=== PATIENT | male | born 1975 | race Hispanic/Latino ===

== ENCOUNTER 2022-04-22 06:41 | Day surgery (SDC) | payer OTHER ==
[2022-04-20 15:37] LABS: BASOPHILS % (AUTO) 0.4 % (0.0-5.0); EOSINOPHILS % (AUTO) 1.2 % (0.0-8.0); LYMPHOCYTES % (AUTO) 40.7 % (21.0-51.0); MEAN CORPUSCULAR HEMOGLOBIN 31.6 pg (27.0-33.0); MEAN CORPUSCULAR HGB CONC 33.9 g/dL (32.0-36.0); MEAN CORPUSCULAR VOLUME 93.3 fL (79-99); MONOCYTES % (AUTO) 6.3 % (3.0-13.0); NEUTROPHILS % (AUTO) 51.1 % (40.0-77.0); PLATELET COUNT (AUTO) 233 K/uL (130-400); RED BLOOD CELL COUNT(AUTO) 4.93 MIL/uL (4.50-6.20); RED CELL DISTRIBUTION WIDTH 13.2 % (11.0-15.5)
[2022-04-20 15:46] LABS: CREATININE 1.4 mg/dL (0.5-1.5); POTASSIUM 4.8 mmol/L (3.5-5.1)
[2022-04-21 09:07] VITALS: BP 139/99
[2022-04-22] VITALS (12 sets, daily range): BP systolic 91–152; BP diastolic 56–90
[~2022-04-22] VITALS: Ht 182.9 cm; Wt 107.8 kg
[~2022-04-22 06:41] MED LIST: AMIO200T68 PO; ATOR-2 PO; DICL75TA5 PO; METO-408 PO; RIVA20TA PO
[2022-04-22] MEDS ORDERED: CLON1TAB12 PO (08:27)
[2022-04-22] MEDS ORDERED: PROPOFOL 10 MG/ML 20ML VIAL IV ONE (08:42)
[2022-04-22] MEDS ORDERED: SUCCINYLCHOLINE 200MG/10ML SYR ONE (08:42)
== END 2022-04-22 09:50 | disposition home or self-care (01) ==
LOC: DAH 06:41
PROVIDERS: ATTEND Internal Medicine Cardiovascular Disease
DX: I48.19 Other persistent atrial fibrillation (principal); Z20.822 Contact with and (suspected) exposure to COVID-19; I48.3 Typical atrial flutter; I49.3 Ventricular premature depolarization; I25.2 Old myocardial infarction; I10 Essential (primary) hypertension; E78.5 Hyperlipidemia, unspecified; F17.200 Nicotine dependence, unspecified, uncomplicated; Z95.5 Presence of coronary angioplasty implant and graft; Z90.49 Acquired absence of other specified parts of digestive tract; Z98.890 Other specified postprocedural states; Z82.49 Family history of ischemic heart disease and other diseases of the circulatory system; Z83.3 Family history of diabetes mellitus; Z82.3 Family history of stroke; Z88.0 Allergy status to penicillin
CPT/HCPCS: 80048; 85025; 87426; 36415; 92960; 93005 ×2; A4223 ×3; J0330; J2704; A4215; A7002; A4222; A4221; A4663; A4216; J7030; A4606; 99156; 99157

== ENCOUNTER → 2022-05-25 | Outpatient (CLI) | payer OTHER ==
[~2022-05-25] MED LIST changes: +ALBUTEROL 0.083% 2.5 MG/3 ML INH IH ONE; +CLON1TAB12 PO
== END | disposition home or self-care (01) ==
LOC: RESP 10:15
PROVIDERS: ATTEND Internal Medicine Cardiovascular Disease
DX: T46.2X1A Poisoning by other antidysrhythmic drugs, accidental (unintentional), initial encounter (principal); R06.02 Shortness of breath; I48.0 Paroxysmal atrial fibrillation; R06.09 Other forms of dyspnea; X58.XXXA Exposure to other specified factors, initial encounter; Y93.89 Activity, other specified; Y92.89 Other specified places as the place of occurrence of the external cause; Y99.8 Other external cause status
CPT/HCPCS: 94010; 94060; 94727; 94729

== ENCOUNTER → 2022-06-07 | Outpatient (CLI) | payer OTHER ==
[~2022-06-07] MED LIST changes: -ALBUTEROL 0.083% 2.5 MG/3 ML INH IH ONE
== END | disposition home or self-care (01) ==
LOC: SHCH 11:09
PROVIDERS: ATTEND Internal Medicine Cardiovascular Disease
DX: I48.3 Typical atrial flutter (principal)
CPT/HCPCS: 93306

== ENCOUNTER 2022-08-30 05:51 | Observation (INO) | payer OTHER ==
[2022-08-26 14:16] LABS: BASOPHILS % (AUTO) 0.5 % (0.0-5.0); EOSINOPHILS % (AUTO) 1.5 % (0.0-8.0); HEMATOCRIT 45.3 % (42-54); LYMPHOCYTES % (AUTO) 34.1 % (21.0-51.0); MEAN CORPUSCULAR HEMOGLOBIN 31.7 pg (27.0-33.0); MEAN CORPUSCULAR HGB CONC 33.6 g/dL (32.0-36.0); MEAN CORPUSCULAR VOLUME 94.4 fL (79-99); MONOCYTES % (AUTO) 8.2 % (3.0-13.0); NEUTROPHILS % (AUTO) 55.5 % (40.0-77.0); PLATELET COUNT (AUTO) 219 K/uL (130-400); WHITE BLOOD COUNT (AUTO) 8.2 K/uL (4.8-10.8)
[2022-08-26 14:29] LABS: INR 1.26 (0.85-1.15); PROTHROMBIN TIME 13.6 SEC (9.6-11.6)
[2022-08-26 14:37] LABS: CREATININE 1.4 mg/dL (0.5-1.5); POTASSIUM 4.2 mmol/L (3.5-5.1)
[2022-08-26 14:40] VITALS: BP 121/68
[2022-08-30] VITALS (26 sets, daily range): BP systolic 101–143; BP diastolic 61–80
[~2022-08-30] VITALS: Ht 182.9 cm; Wt 108.4 kg
[~2022-08-30 05:51] MED LIST changes: -CLON1TAB12 PO; +ESCI-8 PO; -METO-408 PO
[2022-08-30] MEDS ORDERED: 0.9%NACL 1000ML 1,000 ML IV ONE (06:25)
[2022-08-30] MEDS ORDERED: PROPOFOL 1000 MG/100 ML 200 ML IV ONE (07:06)
[2022-08-30] MEDS ORDERED: KETAMINE 50MG/ML SYRINGE 50 MG/ML DISP.SYRIN ONE ×2 (07:07→07:08)
[2022-08-30] MEDS ORDERED: DEXMEDETOMIDINE HCL 200 MCG/2 ML VIAL IV ONE (07:07)
[2022-08-30] MEDS ORDERED: PHENYLEPHRINE HCL 10 MG/ML 1ML VIAL IV ONE (07:10)
[2022-08-30] MEDS ORDERED: EPHEDRINE SULFATE 50 MG/ML AMPULE ONE (07:10)
[2022-08-30] MEDS ORDERED: HEPARIN 10,000 UNIT/10ML (1,000 UNIT/ML) VIAL ONE ×2 (07:20→08:11)
[2022-08-30] MEDS ORDERED: LIDOCAINE HCL 1% MDV 50ML VIAL ONE (07:20)
[2022-08-30] MEDS ORDERED: SUCCINYLCHOLINE 200MG/10ML SYR ONE (07:40)
[2022-08-30] MEDS ORDERED: LIDOCAINE PF 100MG/5ML (2%) SYRINGE 5ML ONE (07:40)
[2022-08-30] MEDS ORDERED: MIDAZOLAM HCL 1 MG/ML 2ML VIAL ONE (07:40)
[2022-08-30] MEDS ORDERED: DEXAMETHASONE SOD PHOSPHATE 10MG/ML 1ML VIAL ONE (07:40)
[2022-08-30] MEDS ORDERED: ROCURONIUM 10MG/1ML SYR 10 MG/ML ML ONE (07:41)
[2022-08-30] MEDS ORDERED: PROPOFOL 10 MG/ML 20ML VIAL IV ONE (07:41)
[2022-08-30] MEDS ORDERED: FENTANYL CITRATE PF 50 MCG/1 ML 5ML AMP IV ONE (07:41)
[2022-08-30] MEDS ORDERED: ONDANSETRON 4MG INJ ONE ×2 (07:42→14:37)
[2022-08-30] MEDS ORDERED: ISOPROTERENOL HCL 0.2 MG/ML AMP/VIAL/BAG ONE (12:01)
[2022-08-30] MEDS ORDERED: SUGAMMADEX SODIUM 200 MG/2 ML VIAL IV ONE (12:18)
[2022-08-30] MEDS ORDERED: PROTAMINE SULFATE 10 MG/ML 25ML VIAL IV ONE (13:00)
[2022-08-30] MEDS ORDERED: PANTOPRAZOLE 40 MG TAB DR PO SCH (14:00)
[2022-08-30] MEDS ORDERED: MEPERIDINE-PF 25 MG/ML SYG ONE ×2 (14:37→14:49)
[2022-08-30] MEDS: SUCRALFATE 1 GM TABLET PO SCH ×2 (16:51→20:59)
[2022-08-30] MEDS: AMIODARONE 200 MG TABLET PO SCH (20:59)
[2022-08-30] MEDS ORDERED: ENOXAPARIN SODIUM 120 MG/0.8ML SQ ONE (21:00)
[2022-08-31] MEDS: SUCRALFATE 1 GM TABLET PO SCH ×2 (02:31→09:24)
[2022-08-31 04:51] VITALS: BP 118/70
[2022-08-31 08:50] VITALS: BP 153/80
[2022-08-31] MEDS ORDERED: ATORVASTATIN 40 MG TABLET PO SCH (09:00)
[2022-08-31] MEDS ORDERED: Escitalopram Oxalate 10 MG PO SCH (09:00)
[2022-08-31] MEDS ORDERED: Diclofenac Sodium 75 MG PO SCH (09:00)
[2022-08-31] MEDS ORDERED: PANTOPRAZOLE 40 MG TAB DR PO SCH (09:00)
[2022-08-31] MEDS ORDERED: RIVAROXABAN 20 MG TABLET PO SCH (09:00)
[2022-08-31] MEDS: AMIODARONE 200 MG TABLET PO SCH (09:24)
[2022-08-31] MEDS ORDERED: PANT40TA55 PO (09:40)
[2022-08-31] MEDS ORDERED: SUCR1ORA15 PO (09:40)
== END 2022-08-31 10:58 | disposition home or self-care (01) ==
LOC: DAH 05:51 → DAHIP 05:52 → 2AH 15:18
PROVIDERS: ADMIT Internal Medicine Cardiovascular Disease; ATTEND Internal Medicine Cardiovascular Disease
DX: I48.0 Paroxysmal atrial fibrillation (principal); Z20.822 Contact with and (suspected) exposure to COVID-19; I48.3 Typical atrial flutter; I11.0 Hypertensive heart disease with heart failure; I50.20 Unspecified systolic (congestive) heart failure; I25.2 Old myocardial infarction; E78.5 Hyperlipidemia, unspecified; R55 Syncope and collapse; Z95.1 Presence of aortocoronary bypass graft; Z90.49 Acquired absence of other specified parts of digestive tract; Z79.899 Other long term (current) drug therapy; Z98.890 Other specified postprocedural states; Z79.01 Long term (current) use of anticoagulants
CPT/HCPCS: 80048; 85025; 85610; 85730; 87426; 36415; 93005 ×2; 93622; 93623; 93655; 93656; 93657; 96372; 85347 ×9; C1894 ×4; A4344; C1732 ×2; C1893; A4215 ×2; C1731; A4649 ×2; G0378 ×21; J3010; J0330; J1100; J7030; J3490 ×6; J2720; J2001; J1644 ×4; J2250; J2704 ×2; J2405 ×2; J2175 ×2; J1650 ×2; J2370; A4223 ×3; A4222; A4221; A4663; A4216; A4606